=== PATIENT | male | born 1975 | race Caucasian/White ===

== ENCOUNTER 2022-07-20 19:35 | Emergency (ER) | payer BC ==
[2022-07-20 20:12] VITALS: BP 142/90; PULSE 66; RESP 17; TEMP 98.6; BMI 37.4
== END 2022-07-20 22:37 | disposition home or self-care (01) ==
LOC: FER 19:35
DX: S06.0X0A Concussion without loss of consciousness, initial encounter (principal); S05.12XA Contusion of eyeball and orbital tissues, left eye, initial encounter; Y04.8XXA Assault by other bodily force, initial encounter
CPT/HCPCS: 70450-TC; 70486-TC; 99284-25